=== PATIENT | female | born 1970 | race Caucasian/White ===

== ENCOUNTER 2021-06-26 12:24 | Emergency (ER) | payer OTHER ==
[~2021-06-26] VITALS: Ht 153.7 cm; Wt 83.0 kg
[~2021-06-26 12:24] MED LIST: BASAGLAR K100 UNIT/1 SC; KEFLEX500 MG PO; LAMOTRIGINE ER300 MG PO; RANITIDINE HCL150 MG PO; TIZANIDINE HCL4 MG PO; ZIPRASIDONE HCL40 MG PO
[2021-06-26 13:41] LABS: BASOPHIL 0.9 % (0-2); EOSINOPHIL 2.6 % (0-5); HCT 43.5 % (37.0-47.0); MCH 27.2 pg (25.0-31.0); MCHC 32.2 g/dL (32.0-36.0); MCV 84.6 fL (78.0-100.0); MONOCYTE 5.1 % (0-12); MPV 9.9 fL (6.0-9.5); NEUTROPHIL 63.9 % (41-80); NRBC 0; PLT 365 K/uL (150-400); RBC 5.14 M/uL (4.20-5.40); RDW 14.5 % (11.5-14.0); WBC 10.5 K/uL (4.0-10.5)
[2021-06-26 13:45] LABS: BUN/CREAT RATIO (CALC) 1.3 RATIO; CREATININE 0.79 mg/dL (0.51-0.95); POTASSIUM 3.8 mmol/L (3.5-5.1)
== END 2021-06-26 14:06 | disposition home or self-care (01) ==
LOC: FER 12:24
PROVIDERS: Emergency Medicine
DX: R20.2 Paresthesia of skin (principal); I10 Essential (primary) hypertension; E11.9 Type 2 diabetes mellitus without complications; F17.210 Nicotine dependence, cigarettes, uncomplicated; Z88.6 Allergy status to analgesic agent; Z88.2 Allergy status to sulfonamides; Z79.4 Long term (current) use of insulin; Z79.02 Long term (current) use of antithrombotics/antiplatelets; Z79.899 Other long term (current) drug therapy
CPT/HCPCS: 36415; 70450; 80048; 85025; 93005